=== PATIENT | male | born 1960 | race Caucasian/White ===

== ENCOUNTER 2020-06-07 13:05 | Outpatient (REF) | payer OTHER, SELFPAY | END 2020-06-07 13:06 | disposition home or self-care (01) | LOC: HO.LAB 13:05 | PROVIDERS: PCP Nurse Practitioner Family; Visit Provider Internal Medicine | DX: Z20.828 Contact with and (suspected) exposure to other viral communicable diseases (principal) | CPT/HCPCS: C9803; U0003 ==

== ENCOUNTER 2020-07-26 16:18 | Outpatient (REF) | payer OTHER, SELFPAY ==
--- NOTE | 2020-07-26 16:22 | XR_ITS ---
EXAMINATION: XR KNEE, LEFT CLINICAL INFORMATION: Pain COMPARISON: Previous x-ray August 2017 TECHNIQUE: Four views of the left knee. FINDINGS: Bone alignment is normal. No fracture or dislocation is seen. There are small osteophytes at the patellofemoral joint. Joint spaces are otherwise normal. There is no joint effusion. XR/XR knee LT 4V IMPRESSION: Mild degenerative changes at the patellofemoral joint.
== END 2020-07-26 16:19 | disposition home or self-care (01) ==
LOC: HO.HMGCX 16:18
PROVIDERS: Visit Provider Nurse Practitioner Family
DX: M25.562 Pain in left knee (principal)
CPT/HCPCS: 73564

== ENCOUNTER 2020-09-22 05:58 | Outpatient (REF) | payer OTHER, SELFPAY ==
[2020-09-22 08:17] LABS: Alanine Aminotransferase 18 U/L (0-40); Albumin Level 4.1 g/dL (3.5-5.0); Alkaline Phosphatase 61 U/L (39-117); Anion Gap 13 (12-20); Aspartate Amino Transferase 16 U/L (5-37); Bilirubin Total 1.1 mg/dL (0.0-1.0); Blood Urea Nitrogen 23 mg/dL (9-16); Calcium 8.9 mg/dL (8.4-10.2); Carbon Dioxide 26 mmol/L (22-29); Chloride 108 mmol/L (96-108); Estimated Glomerular Filt Rate > 60; Glucose Random 94 mg/dL (60-115); Potassium 4.6 mmol/L (3.3-5.1); Sodium 142 mmol/L (135-145); Total Protein 7.2 g/dL (6.5-8.0)
[2020-09-22 08:31] LABS: TSH reflex Free T4 2.49 uIU/mL (0.32-4.0)
== END 2020-09-22 05:59 | disposition home or self-care (01) ==
LOC: HO.LAB 05:58
PROVIDERS: PCP Nurse Practitioner Family; Visit Provider Nurse Practitioner Family
DX: R51.9 Headache, unspecified (principal); H57.10 Ocular pain, unspecified eye
CPT/HCPCS: 36415; 80053; 84443

== ENCOUNTER 2021-03-24 09:21 | Outpatient (REF) | payer OTHER, SELFPAY ==
--- NOTE | ~2021-03-24 | MR_ITS ---
EXAMINATION: MR KNEE WITHOUT CONTRAST, RIGHT CLINICAL INFORMATION: Knee pain. COMPARISON: None TECHNIQUE: MRI of the knee without contrast was performed using routine sequences on a high-field scanner. FINDINGS: MENISCI: Medial Meniscus: Tibial surface tearing in the posterior horn. In addition, there is free edge and superior surface fraying/tear in the lateral aspect of the posterior horn/posterior root. Tibial surface fraying/tear in the body, with meniscal tissue partially subluxed into the meniscotibial recess. Lateral Meniscus: Intact. LIGAMENTS: Cruciate: Intact. Collateral: Intact. EXTENSOR MECHANISM: Intact. ARTICULAR CARTILAGE/BONE: Patellofemoral Compartment: Area of cartilage heterogeneity and mild fissuring in the central trochlea. Medial Compartment: Cartilage thinning in the central and medial aspect of the compartment. Focal subchondral edema in the tibia. Lateral Compartment: Focal cartilage thinning in the posterior weightbearing femur. No fracture. JOINT FLUID AND BURSAE: No significant effusion. Suspected 4 mm loose body posteriorly. There is an area of heterogeneous T2 bright and low signal in the deep subcutaneous tissues along the posterior medial aspect of the knee, overlying the muscles and tendons in this region. This extends over a distance of approximately 4.2 x 0.9 x 4.9 cm (AP, transverse, craniocaudal). This is of uncertain etiology. Differential considerations include complex ganglion cyst, atypical bursitis, inflammatory process, less likely to be an infectious process. MR/MR knee RT wo con IMPRESSION: 1. Tibial surface tear in the posterior horn of the medial meniscus. Tibial surface fraying/tear in the body. 2. Mild tricompartment arthritis. 3. Suspected 4 mm loose body in the posterior joint space. 4. Heterogeneous T2 bright focus in the deep subcutaneous tissues along the posterior medial aspect of the knee, of indeterminate etiology, measuring approximately 4.2 x 0.9 x 4.9 cm. Differential considerations include complex tendons cyst, atypical bursitis, inflammatory process, less likely, infectious etiology. Please clinically correlate and manage. Followup MRI for reassessment as clinically warranted.
== END 2021-03-24 09:22 | disposition home or self-care (01) ==
LOC: HO.MRI 09:21
PROVIDERS: PCP Nurse Practitioner Family; Visit Provider Nurse Practitioner Family
DX: M25.561 Pain in right knee (principal)
CPT/HCPCS: 73721

== ENCOUNTER 2021-04-21 08:00 | Outpatient (REF) | payer OTHER, SELFPAY ==
--- NOTE | ~2021-04-21 | XR_ITS ---
EXAMINATION: X-RAY OF THE RIGHT KNEE CLINICAL INFORMATION: 60-year-old male patient with pain in the right knee. COMPARISON: MR of the right knee on 03/24/2021. (Mild tricompartmental arthritis, loose body, and medial meniscal tear). X-ray of the left knee on 07/26/2020. TECHNIQUE: AP standing views of both knees, lateral and sunrise views of the left knee. FINDINGS: Both knees show mild joint space narrowing of the medial compartments. The articular surfaces however are well-preserved. There is no joint effusion. A tiny patellar spur is present. A posterior loose body is present measuring 0.5 cm. What appears to be venous calcification is seen in the popliteal fossa. XR/XR knee standing BI IMPRESSION: Mild symmetric joint space narrowing of the medial compartments. Loose body right knee joint.
--- NOTE | ~2021-04-21 | XR_ITS ---
EXAMINATION: X-RAY OF THE RIGHT KNEE CLINICAL INFORMATION: 60-year-old male patient with pain in the right knee. COMPARISON: MR of the right knee on 03/24/2021. (Mild tricompartmental arthritis, loose body, and medial meniscal tear). X-ray of the left knee on 07/26/2020. TECHNIQUE: AP standing views of both knees, lateral and sunrise views of the left knee. FINDINGS: Both knees show mild joint space narrowing of the medial compartments. The articular surfaces however are well-preserved. There is no joint effusion. A tiny patellar spur is present. A posterior loose body is present measuring 0.5 cm. What appears to be venous calcification is seen in the popliteal fossa. XR/XR knee RT 2V IMPRESSION: Mild symmetric joint space narrowing of the medial compartments. Loose body right knee joint.
== END 2021-04-21 08:01 | disposition home or self-care (01) ==
LOC: HO.HOSX 08:00
PROVIDERS: Visit Provider Physician Assistant
DX: M17.11 Unilateral primary osteoarthritis, right knee (principal); M23.306 Other meniscus derangements, unspecified meniscus, right knee; M25.562 Pain in left knee
CPT/HCPCS: 73560; 73565

== ENCOUNTER 2021-05-11 06:03 | Outpatient (REF) | payer OTHER, SELFPAY ==
[2021-05-11 07:48] LABS: Alanine Aminotransferase 15 U/L (0-40); Alkaline Phosphatase 60 U/L (39-117); Anion Gap 12 (12-20); Aspartate Amino Transferase 16 U/L (5-37); Bilirubin Total 0.8 mg/dL (0.0-1.0); Blood Urea Nitrogen 16 mg/dL (9-16); Carbon Dioxide 28 mmol/L (22-29); Chloride 107 mmol/L (96-108); Cholesterol 169 mg/dL; Estimated Glomerular Filt Rate > 60; Glucose Fasting 103 mg/dL (60-99); HDL Cholesterol 41 mg/dL; LDL Cholesterol Calculated 115 mg/dl; Potassium 4.5 mmol/L (3.3-5.1); Sodium 142 mmol/L (135-145); Total Protein 6.9 g/dL (6.5-8.0); Triglycerides 67 mg/dL
[2021-05-11 08:43] LABS: Prostate Specific Antigen Scr 1.45 ng/mL (<0.05-4.0)
[2021-05-11 08:44] LABS: Appearance Urine CLEAR; Color Urine YELLOW; Glucose Urine UA NEG (NEG); Leukocyte Esterase Urine NEG (NEG); Nitrite Urine NEG (NEG); Urine Blood NEG (NEG); Urine Ketones NEG (NEG); Urine Protein NEG (NEG-TRACE)
== END 2021-05-11 06:04 | disposition home or self-care (01) ==
LOC: HO.LAB 06:03
PROVIDERS: PCP Nurse Practitioner Family; Visit Provider Nurse Practitioner Family
DX: Z00.00 Encounter for general adult medical examination without abnormal findings (principal); Z12.5 Encounter for screening for malignant neoplasm of prostate
CPT/HCPCS: 36415; 80053; 80061; 81003; 84153; 84443

== ENCOUNTER 2022-07-11 06:07 | Outpatient (REF) | payer OTHER, SELFPAY ==
[2022-07-11 06:17] LABS: MANUAL DIFF FLAG NO
[2022-07-11 07:42] LABS: Basophils Absolute Auto 0.1 X10*3/uL (0.0-0.2); Basophils Percent Auto 0.8 % (0-2); Eosinophils Absolute Auto 0.3 X10*3/uL (0.0-0.4); Eosinophils Percent Auto 3.6 % (0-4); Hematocrit 43.1 % (42.0-52.0); Hemoglobin 14.6 g/dl (14.0-18.0); Imm Gran Abs Auto 0.03 X10*3/uL (0.00-0.03); Imm Gran Pct Auto 0.4 % (0.0-0.4); Lymphocytes Absolute Auto 2.9 X10*3/uL (1.2-4.9); Lymphocytes Percent Auto 34.3 % (20-40); Mean Corpuscular HGB Conc 33.9 g/dl (31.0-36.0); Mean Corpuscular Hemoglobin 30.7 pg (27.0-33.0); Mean Corpuscular Volume 90.5 fL (80.0-98.0); Mean Platelet Volume 9.6 fL (9.4-12.4); Monocytes Absolute Auto 1.1 X10*3/uL (0.1-1.2); Monocytes Percent Auto 13.3 % (2-11); Neutrophils Percent Auto 47.6 % (45-73); Platelet Count 286 X10*3/uL (160-400); Red Blood Count 4.76 X10*6/uL (4.60-5.80); Red Cell Distribution Width 12.2 % (11.0-16.0); White Blood Count 8.4 X10*3/uL (4.8-10.8)
[2022-07-11 07:44] LABS: Appearance Urine Clear; Color Urine Yellow; Glucose Urine UA Negative (Negative); Leukocyte Esterase Urine Negative (Negative); Nitrite Urine Negative (Negative); PH 5.5 (5.0-9.0); Urine Blood Negative (Negative); Urine Ketones Negative (Negative); Urine Protein Negative (Neg-Trace)
[2022-07-11 08:36] LABS: Alanine Aminotransferase 23 U/L (0-40); Alkaline Phosphatase 64 U/L (39-117); Anion Gap 13 (12-20); Aspartate Amino Transferase 22 U/L (5-37); Bilirubin Total 0.9 mg/dL (0.0-1.0); Blood Urea Nitrogen 20 mg/dL (9-16); Calcium 9.2 mg/dL (8.4-10.2); Carbon Dioxide 27 mmol/L (22-29); Chloride 106 mmol/L (96-108); Cholesterol 188 mg/dL; Estimated Glomerular Filt Rate > 60; Glucose Fasting 103 mg/dL (60-99); HDL Cholesterol 44 mg/dL; LDL Cholesterol Calculated 127 mg/dl; Potassium 4.6 mmol/L (3.3-5.1); Prostate Specific Antigen Scr 1.29 ng/mL (<0.05-4.0); Sodium 141 mmol/L (135-145); TSH reflex Free T4 2.61 uIU/mL (0.32-4.0); Triglycerides 89 mg/dL
[2022-07-19 15:29] LABS: Testosterone, Free 60.8 pg/mL (35.0-155.0); Testosterone, Total 380 ng/dL (250-1100)
== END 2022-07-11 06:08 | disposition home or self-care (01) ==
LOC: HO.LAB 06:07
PROVIDERS: PCP Nurse Practitioner Family; Visit Provider Nurse Practitioner Family
DX: Z00.00 Encounter for general adult medical examination without abnormal findings (principal); Z12.5 Encounter for screening for malignant neoplasm of prostate; N52.9 Male erectile dysfunction, unspecified; R53.83 Other fatigue
CPT/HCPCS: 36415; 80053; 80061; 81003; 84153; 84402; 84403; 84443; 85025

== ENCOUNTER → 2022-08-13 15:13 | Outpatient (REF) | payer OTHER, SELFPAY | LOC: HO.SL 15:13 | PROVIDERS: Visit Provider Nurse Practitioner Family | DX: G47.30 Sleep apnea, unspecified (principal); R53.83 Other fatigue; R40.0 Somnolence; R06.83 Snoring | CPT/HCPCS: 95806 ==

== ENCOUNTER 2023-04-26 09:23 | Emergency (ER) | payer OTHER, SELFPAY ==
--- NOTE | 2023-04-26 09:25 | ECG_ITS ---
Test Reason : cp Blood Pressure : / mmHG Vent. Rate : 079 BPM Atrial Rate : 079 BPM P-R Int : 172 ms QRS Dur : 118 ms QT Int : 376 ms P-R-T Axes : 072 -49 055 degrees QTc Int : 431 ms Normal sinus rhythm Left axis deviation Incomplete right bundle branch block Abnormal ECG When compared with ECG of 20-MAY-2018 08:50, No significant change was found Referred By: Generic ED Physician Electronically Signed By:KALYAN SHARP
[2023-04-26 09:39] VITALS: BP 133/78; PULSE 83; RESP 16; TEMP 36.7; O2SAT 96; BMI 27.6
[2023-04-26 09:42] VITALS: PULSE 75; PULSE 78; RESP 16; O2SAT 95
--- NOTE | 2023-04-26 09:44 | PC.NURSE ---
Pt alert/oriented. Reports heart flutter sensation x 3 days with associated cough. Noted to have PVCs with episodes at bedside. Dr Escalona with this RN for evaluation. Denies pain, SOB or dizziness. Skin pwd. Speaking full sentences. Plan for labs
--- NOTE | 2023-04-26 09:47 | ED_ITS ---
HPI - Arrhythmia/Palpitations General Chief Complaint: Arrhythmia/Palpitations Stated Complaint: Chest Pain Time Seen by Provider: 04/26/23 09:33 History of Present Illness HPI narrative: Patient is a 62-year-old male then today was having palpitations. He denies any any energy drinks. No recreational drugs. The skip beats seems to be singular. It is not associated shortness of breath chest pain dizziness syncope or near syncopal episodes. It just feels odd. No history of the same. Patient is from home. No fever no chills. Patient works as a commercial painter. Related Data Previous Rx's Medication Instructions Recorded meclizine 25 mg tablet 25 mg PO DAILY PRN motion sickness 05/10/21 30 days #30 tabs sildenafil 50 mg tablet 50 mg PO DAILY PRN sexual activity 07/02/22 10 days #10 tabs omeprazole 40 mg capsule,delayed 40 mg PO DAILY 90 days #90 caps 02/06/23 release metoprolol tartrate 25 mg tablet 25 mg PO DAILY #14 tabs 04/26/23 Allergies Allergy/AdvReac Type Severity Reaction Status Date / Time No Known Allergies Allergy Verified 07/13/22 15:09 [No Known Allergies*] Review of Systems 2 Review of Systems: No fever no chills no chest pain or shortness of breath Yes all other systems are reviewed and are negative PMFSH Past Medical History Attestation statement: The following information was validated with the patient. 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 Oriented X3. No acute distress. Eyes: Pupils equal, round and reactive to light. ENT: Pharynx normal. Neck: Normal inspection. Neck supple. No lymph nodes noted. No crepitus CVS: Normal heart rate and rhythm. Pulses normal. Normal S1 and S2 Respiratory: No respiratory distress. Breath sounds normal. No Wheezing. No rales Abdomen: Soft and nontender. No rigidity. No distention. good BS x4 Skin: Skin warm and dry. Normal skin color. Normal skin turgor. Extremities: No lower extremity edema. Neurovascular intact to all extremities. No Lacerations. No Rash Neuro: Oriented X 3. No motor deficit. No sensory deficit. Moving all extermities. No slurred speech Medical Decision Making Medical Decision Making [facility] Narrative: Patient has unifocal PVCs noted on the monitor. These episodes occur when patient feels the odd be. My interpretation of his EKG showed a sinus rhythm heart rate is 80 AK QRS QTC within normal limits there is no acute ST segment elevation noted. Patient is in no acute distress. No chest pain no shortness of breath no diaphoresis no history of any G drink. Alcohol was negative. Denies any recreational drug use. Patient's case discussed with cardiology okay with starting patient on metoprolol 25 mg q.d.. Follow up with him on an outpatient basis. Patient is currently in stable Differential Diagnosis Differential Diagnoses: The differential diagnosis associated with the presentation includes Consult Healthcare Provider Management of the patient was discussed with: [facility] [employer] (Cardiology Dr. Wild) Lab Data [facility] Lab Attestation statement: I reviewed the patient's lab results. 04/26/23 10:07 04/26/23 10:07 Labs: Lab Results 04/26/23 Range/Units 10:07 WBC 6.9 (4.8-10.8) X10*3/uL RBC 4.33 L (4.60-5.80) X10*6/uL Hgb 13.5 L (14.0-18.0) g/dl Hct 39.5 L (42.0-52.0) % MCV 91.2 (80.0-98.0) fL MCH 31.2 (27.0-33.0) pg MCHC 34.2 (31.0-36.0) g/dl RDW 12.4 (11.0-16.0) % Plt Count 256 (160-400) X10*3/uL MPV 9.1 L (9.4-12.4) fL Immature Gran % (Auto) 0.3 (0.0-0.4) % Neut % (Auto) 52.4 (45-73) % Lymph % (Auto) 30.3 (20-40) % Bleckley % (Auto) 14.4 H (2-11) % Eos % (Auto) 2.2 (0-4) % Baso % (Auto) 0.4 (0-2) % Lymph # (Auto) 2.1 (1.2-4.9) X10*3/uL Bleckley # (Auto) 1.0 (0.1-1.2) X10*3/uL Eos # (Auto) 0.2 (0.0-0.4) X10*3/uL Baso # (Auto) 0.0 (0.0-0.2) X10*3/uL Abs Immat Gran (auto) 0.02 (0.00-0.03) X10*3/uL Absolute Neuts (auto) 3.6 (2.0-8.3) x10*3/uL Absolute Nucleated RBC 0.000 (0.0-0.012) X10*3/uL Nucleated RBC % (auto) 0.0 (0.0-0.2) /100WBC Sodium 140 (135-145) mmol/L Potassium 3.8 (3.3-5.1) mmol/L Chloride 108 (96-108) mmol/L Carbon Dioxide 23 (22-29) mmol/L Anion Gap 13 (12-20) BUN 17 H (9-16) mg/dL Creatinine 0.80 (0.5-1.4) mg/dL Estim Creat Clear Calc 104.5 Estimated GFR > 60 Random Glucose 106 (60-115) mg/dL Calcium 8.8 (8.4-10.2) mg/dL Total Bilirubin 0.9 (0.0-1.0) mg/dL Direct Bilirubin 0.3 (0.0-0.5) mg/dL AST 19 (5-37) U/L ALT 18 (0-40) U/L Alkaline Phosphatase 58 (39-117) U/L Troponin I High Sens < 2.7 (<3.5-35.0) ng/L Total Protein 7.1 (6.5-8.0) g/dL Albumin 3.9 (3.5-5.0) g/dL Urine Opiates Screen Not Detected (Not Detect) Urine Fentanyl Screen Not Detected (Not Detect) Ur Barbiturates Screen Not Detected (Not Detect) Ur Phencyclidine Scrn Not Detected (Not Detect) Ur Amphetamines Screen Not Detected (Not Detect) U Benzodiazepines Scrn Not Detected (Not Detect) Urine Cocaine Screen Not Detected (Not Detect) U Marijuana (THC) Screen Not Detected (Not Detect) Ethyl Alcohol < 10 mg/dL Independent Interpretation I performed an independent interpretation of an: EKG Interpretation: Sinus heart rate is 80 AK QRS QTC within normal limits is no acute ST segment elevation noted. External Record Review External record reviewed: Prior outpatient radiology Chronic Conditions Reflux Discharge Plan Discharge Clinical Impression: Frequent PVCs Patient Disposition: Home, Self-Care Instructions: Premature Ventricular Contractions (ED) Prescriptions: New metoprolol tartrate 25 mg tablet 25 mg PO DAILY Qty: 14 0RF No Action omeprazole 40 mg capsule,delayed release(DR/EC) 40 mg PO DAILY 90 Days Qty: 90 1RF meclizine 25 mg tablet 25 mg PO DAILY PRN (Reason: motion sickness) 30 Days Qty: 30 0RF sildenafil 50 mg tablet 50 mg PO DAILY PRN (Reason: sexual activity) 10 Days Qty: 10 0RF Rx Instructions: administer 30 minutes to 4 hours before activity Referrals: Israel Rogers MD [Physician] - Stand Alone Forms: Work/School Release
[2023-04-26 10:18] LABS: MANUAL DIFF FLAG NO
[2023-04-26 10:19] LABS: Basophils Percent Auto 0.4 % (0-2); Eosinophils Absolute Auto 0.2 X10*3/uL (0.0-0.4); Eosinophils Percent Auto 2.2 % (0-4); Hematocrit 39.5 % (42.0-52.0); Hemoglobin 13.5 g/dl (14.0-18.0); Imm Gran Abs Auto 0.02 X10*3/uL (0.00-0.03); Imm Gran Pct Auto 0.3 % (0.0-0.4); Lymphocytes Absolute Auto 2.1 X10*3/uL (1.2-4.9); Lymphocytes Percent Auto 30.3 % (20-40); Mean Corpuscular HGB Conc 34.2 g/dl (31.0-36.0); Mean Corpuscular Hemoglobin 31.2 pg (27.0-33.0); Mean Corpuscular Volume 91.2 fL (80.0-98.0); Mean Platelet Volume 9.1 fL (9.4-12.4); Monocytes Percent Auto 14.4 % (2-11); Neutrophils Absolute Auto 3.6 x10*3/uL (2.0-8.3); Neutrophils Percent Auto 52.4 % (45-73); Platelet Count 256 X10*3/uL (160-400); Red Blood Count 4.33 X10*6/uL (4.60-5.80); Red Cell Distribution Width 12.4 % (11.0-16.0); White Blood Count 6.9 X10*3/uL (4.8-10.8)
[2023-04-26 10:26] LABS: Amphetamine Screen Urine Not Detected (Not Detect); Barbiturates, Urine Not Detected (Not Detect); Benzodiazepines Screen Urine Not Detected (Not Detect); Cannabinoid Screen Urine Not Detected (Not Detect); Cocaine Screen Urine Not Detected (Not Detect); Fentanyl, urine Not Detected (Not Detect); Opiate Screen Urine Not Detected (Not Detect); Phencyclidine Screen Urine Not Detected (Not Detect)
[2023-04-26 10:36] LABS: Alanine Aminotransferase 18 U/L (0-40); Albumin Level 3.9 g/dL (3.5-5.0); Alkaline Phosphatase 58 U/L (39-117); Anion Gap 13 (12-20); Aspartate Amino Transferase 19 U/L (5-37); Bilirubin Direct 0.3 mg/dL (0.0-0.5); Bilirubin Total 0.9 mg/dL (0.0-1.0); Blood Urea Nitrogen 17 mg/dL (9-16); Calcium 8.8 mg/dL (8.4-10.2); Carbon Dioxide 23 mmol/L (22-29); Chloride 108 mmol/L (96-108); Creatinine Clr Calc Pharmacy 104.5; Estimated Glomerular Filt Rate > 60; Ethanol < 10 mg/dL; Glucose Random 106 mg/dL (60-115); Potassium 3.8 mmol/L (3.3-5.1); Sodium 140 mmol/L (135-145); Total Protein 7.1 g/dL (6.5-8.0)
[2023-04-26 10:49] LABS: Troponin-I High Sensitivity < 2.7 ng/L (<3.5-35.0)
[2023-04-26 12:38] VITALS: BP 124/88; PULSE 67; RESP 19; O2SAT 95
== END 2023-04-26 13:32 | disposition home or self-care (01) ==
PROVIDERS: Emergency Provider Emergency Medicine Emergency Medical Services; PCP Nurse Practitioner Family
DX: R07.89 Other chest pain (principal); R00.2 Palpitations; Z79.899 Other long term (current) drug therapy
CPT/HCPCS: 36415; 80048; 80076; 80307; 84484; 85025; 93005; 99284; 99285

== ENCOUNTER 2023-07-31 13:14 | Outpatient (AMB) | payer OTHER, SELFPAY ==
--- NOTE | 2023-07-31 13:17 | MHC.PC.OV ---
Vital Signs 07/31/23 13:20 Height 5 ft 11 in Weight 191 lb 2 oz BMI 26.7 BP 130/82 Blood Pressure Location Lt brachial Position Sitting Pulse 78 Pulse Source Pulse Oximeter Pulse Oximetry (%) 97 Oxygen Delivery Method Room Air Intake Visit Reasons: Physical exam Intake Note: Patient here for physical exam. no new issues or concerns. Missed last colonoscopy and will r/s Allergies No Known Allergies [No Known Allergies*] Allergy (Verified 07/31/23 13:21) Medication List - Last Reconciled 07/31/23 by ARASH Lira meclizine 25 mg PO DAILY PRN 30 days omeprazole 40 mg PO DAILY 90 days Tobacco use date assessed: 07/31/23 Dental Screening Dental Screen Date: 07/31/23 Did you have a dental visit in the last 12 months?: No Did you have a dental problem in the last 6 months where you did not have access to dental care?: No Was dental information given to patient?: Patient has dentist HPI Physical exam HPI Details pt is here for a PE. Reports his last colon screen he cancelled because he was out of town. He reports he will call to reschedule. 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 1. Little interest or pleasure in doing things: not at all 2. Feeling down, depressed, or hopeless: not at all 3. Trouble falling or staying asleep, or sleeping too much: not at all 4. Feeling tired or having little energy: not at all 5. Poor appetite or overeating: not at all 6. Feeling bad about yourself - or that you are a failure or have let yourself or your family down: not at all 7. Trouble concentrating on things, such as reading the newspaper or watching television: not at all 8. Moving or speaking so slowly that other people could have noticed. Or the opposite - being so fidgety or restless that you have been moving around a lot more than usual: not at all 9. Thoughts that you would be better off or of hurting yourself in some way: not at all Total score: 0 Depression Screening Interpretation: Negative Depression Screening Done: Yes Source: Developed by Drs. Macario Enciso, Carmen Vela, Arsh Tripp and colleagues, with an educational edy from [employer]. Thrive Questionnaire Date Thrive assessed: 07/31/23 I am a: Patient What is your living situation today?: I have a steady place to live Within the past 12 months, did the food you bought not last and you didn't have the money to get more?: Never true Within the past 12 months, did you worry whether your food would run out before you got money to buy more?: Never true Do you have trouble paying for medicines?: No Do you have trouble getting transportation to medical appointments?: No Do you have trouble paying your heating and electricity bill?: No Do you have trouble taking care of your child, family member or friend?: No Do you have trouble with day-to-day activities such as bathing, preparing meals, shopping, managing finances, etc.?: No Are you currently unemployed and looking for a job?: No Are you interested in more education?: No Currently or been in a relationship where the following occur: no concerns reported AUDIT C Alcohol Use Questionnaire (AUDIT-C) 1. How often do you have a drink containing alcohol?: Monthly or less 2. How many drinks containing alcohol do you have on a typical day when you are drinking?: 1 or 2 3. How often do you have six or more drinks on one occasion?: Never Total Score: 1 Score Reviewed/Action Taken: No NORI-7 AMB Questionnaire NORI-7 Date NORI - 7 assessed: 01/03/24 Source: Developed by Drs. Macario Enciso, Carmen Vela, Arsh Tripp and colleagues, with an educational edy from [employer]. NORI-7 Assessment Billing NORI-7 Assessment Tool: pt declined-do not bill Review of Systems Const Denies chills and Denies fever(s) Eyes Denies blurry vision ENT Denies vertigo, Denies dizziness and Denies sore throat Card Denies chest pain at rest, Denies chest pain with activity, Denies diaphoresis, Denies dyspnea and Denies dyspnea on exertion Resp Denies cough, Denies dyspnea, Denies dyspnea on exertion and Denies wheezing GI Denies abdominal pain, Denies melena, Denies hematochezia, Denies constipation, Denies diarrhea and Denies loose stools Denies hematuria Musc Denies numbness and Denies tingling Skin/Breast Denies lesions Neuro Denies vertigo, Denies dizziness, Denies numbness and Denies tingling Psych Denies anxiety, Denies depression, Denies homicidal ideation, Denies suicidal ideation and Denies other (substance abuse) Aller/Immun Denies wheezing Physical exam (Primary Care) Vital Signs: Last Vital Signs Pulse 78 07/31/23 13:20 BP 130/82 07/31/23 13:20 Pulse Ox 97 07/31/23 13:20 Oxygen Delivery Method Room Air 07/31/23 13:20 BMI result Body Mass Index 26.7 Tobacco/Smoking Status: Tobacco use Status Tobacco use date assessed 07/31/23 07/31/23 13:23 Patient Tobacco Use Status Never used Tobacco 07/31/23 13:18 e-Cigarette/Vaping Use Never Used 07/31/23 13:18 PHQ-9: PHQ-9 Score PHQ-9: Total score 0 07/31/23 14:43 Depression Screening Interpretation: Negative Thrive Assessment: Date of Thrive Assessment Date Thrive assessed 07/31/23 07/31/23 14:43 Currently or been in a relationship where the following occur: no concerns reported Const General: cooperative Nutritional Appearance: well nourished Orientation/consciousness: patient oriented x3 HENMT Head: Yes normal to inspection, Yes normocephalic and Yes atraumatic Ears: TM normal on the right and TM normal on the left Eyes General: appearance normal, both eyes and all related structures Alignment and Position: alignment normal and position normal Neck Neck: Yes normal visual inspection and Yes no lymphadenopathy Resp Effort & Inspection: normal respiratory effort Auscultation: clear to auscultation bilaterally Cardio Rate: regular rate Rhythm: regular rhythm Heart sounds: S1 normal heart sound present, S2 normal heart sound present and no murmurs GI Palpation (GI): Soft to palpation and nontender Auscultation: normal bowel sounds Other: prostate firm with nodularities noted Male General Exam: Yes normal external exam Penis: normal penis Scrotum: scrotum normal, testes descended bilaterally and no inguinal hernias Testes: no testicular mass Skin Rashes: no rashes Neuro General: patient oriented x3, moves all extremities, no focal motor deficits and deep tendon reflexes 2+ bilaterally Romberg Test: Negative Extrem Right lower extremity: no edema Left lower extremity: no edema Psych Affect: normal affect Attitude: cooperative Thought process: Normal thought process present Assessment and Plan Assessment & Plan (1) Physical exam: Code(s): Z00.00 - Encounter for general adult medical examination without abnormal findings (2) Nodular prostate: Code(s): N40.2 - Nodular prostate without lower urinary tract symptoms (3) Nocturia: Code(s): R35.1 - Nocturia Plan: referral to urology (4) Screening PSA (prostate specific antigen): Code(s): Z12.5 - Encounter for screening for malignant neoplasm of prostate Plan: referral placed to urology Orders: Orders Complete Blood Count Auto Diff Today Z00.00 - Encounter for general adult medical examination without abnormal findings Comprehensive Cherry Log. Panel Fast Today Z00.00 - Encounter for general adult medical examination without abnormal findings Lipid Panel Today Z00.00 - Encounter for general adult medical examination without abnormal findings Prostate Specific Antigen Scr Today Z12.5 - Encounter for screening for malignant neoplasm of prostate TSH reflex Free T4 Today Z00.00 - Encounter for general adult medical examination without abnormal findings UA CC w/rflx Micro + Cult Today Z00.00 - Encounter for general adult medical examination without abnormal findings Referrals Urology Referral N40.2 - Nodular prostate without lower urinary tract symptoms, R35.1 - Nocturia Coding Level of Care Code Est Pt Prev Care 40-64y([id number]) Diagnoses Physical exam Z00.00 Nodular prostate N40.2 Nocturia R35.1 Screening PSA (prostate specific antigen) Z12.5
[2023-07-31 13:20] VITALS: BP 130/82; PULSE 78; O2SAT 97; BMI 26.7
== END 2023-07-31 13:49 | disposition home or self-care (01) ==
PROVIDERS: PCP Nurse Practitioner Family; Visit Provider Nurse Practitioner Family
DX: Z00.00 Encounter for general adult medical examination without abnormal findings (principal); N40.2 Nodular prostate without lower urinary tract symptoms; R35.1 Nocturia; Z12.5 Encounter for screening for malignant neoplasm of prostate
CPT/HCPCS: 99396

== ENCOUNTER 2023-08-01 06:01 | Outpatient (REF) | payer OTHER, SELFPAY | END 2023-08-01 06:02 | disposition home or self-care (01) | LOC: HO.LAB 06:01 | PROVIDERS: PCP Nurse Practitioner Family; Visit Provider Nurse Practitioner Family | DX: Z00.00 Encounter for general adult medical examination without abnormal findings (principal); Z12.5 Encounter for screening for malignant neoplasm of prostate | CPT/HCPCS: 36415; 80053; 80061; 81003; 84153; 84443; 85025 ==

== ENCOUNTER 2023-08-26 15:19 | Outpatient (AMB) | payer OTHER, SELFPAY ==
--- NOTE | 2023-08-26 15:23 | MHC.OFFVIS ---
Intake Intake Visit Reasons: Nocturia Intake Note: New Patient presents for initial visit Nocturia Urology Medications: none Blood Thinner: none Data Processing Manager Required: No Accompanied by: Self / Same As Patient Allergies No Known Allergies [No Known Allergies*] Allergy (Verified 08/26/23 19:45) Medication List - Last Reconciled 08/26/23 by [facility] NavarreteP- meclizine 25 mg PO DAILY PRN 30 days omeprazole 40 mg PO DAILY 90 days HPI HPI Comments History of Present Illness Details Godfrey is a very pleasant 62-year-old male patient of Dr. Murphy. He presents to the office today as a new patient for nocturia and erectile dysfunction. In discussion with the patient today reports to be doing and feeling well. He reports noting longstanding nocturia however relates this to his increased consumption of fluids throughout the day as well as prior to bed. He does not find this bothersome. He denies any issues with his urination. He does however report experiencing erectile dysfunction. He reports he is able to obtain and maintain erections when watching pornography however finds it difficult to maintain erections with his significant other. He does report having sexual desire. Discussed at length pornography habits leading to erectile dysfunction. Discussed lifestyle modifications to assist with erectile dysfunction. He otherwise denies urinary urgency, urinary frequency, incontinence, hematuria, dysuria, foul smelling urine, changes to urinary stream, flank pain, fever, and or chills. He is happy with his current voiding parameters. When asked he does report having sleep apnea and being noncompliant. Discussed and stressed the importance of following up with sleep medicine for further assessment and evaluation. In review of patients chart appears PSAs are as follows: 05/18 1.5, 07/19 1.3, 08/21 1.5 Testosterone: 07/19-380 [facility] Surgical History History of cystoscopy Family History Father HTN (hypertension) Anxiety Mother Lung cancer Social History Housing: House Alcohol intake: current Alcohol intake frequency: holidays/special occasions only Patient Tobacco Use Status: Never used Tobacco e-Cigarette/Vaping Use: Never Used Second Hand Smoke Exposure: No service: No Current occupational status: employed Current occupation: [employer] and [employer] Current occupational exposures/hazards: No Cognitive needs: No Hearing needs: No Vision needs: No Review of Systems Const All systems reviewed & are unremarkable except as noted in HPI and below Physical Exam Const General: cooperative, healthy appearing, comfortable, no acute distress, well developed, alert and awake Nutritional Appearance: average body habitus Orientation/consciousness: patient oriented x3 Limitations: no limitations HEENT Head: Yes normal to inspection, Yes normocephalic and Yes atraumatic Ears: hearing grossly normal bilaterally Eyes General: appearance normal, both eyes and all related structures Neck Neck: Yes normal visual inspection and Yes trachea midline Chest Chest palpation & inspection: normal inspection of the chest Resp Effort & Inspection: normal respiratory effort and able to speak in complete sentences Cardio Rate: regular rate GI Inspection: Yes normal to inspection General: Yes no CVA tenderness Back/Spine/Pelvis Back: no CVA tenderness Skin General skin exam: no rashes or lesions noted Neuro General: patient oriented x3 Extrem General: Yes normal to inspection Psych Appearance: grossly normal and well kempt Mental Status: mental status grossly normal Speech and movement: Normal speech and movement present and Clear speech present Affect: normal affect Attitude: cooperative Thought process: Normal thought process present Thought content: Normal thought content present Insight: Fair insight present (Psych) Judgement: Fair judgement present (Psych) Results AMB Urinalysis, Automated UA Leukoctes 0 Ivet/uL Last Edit by [employer] on 08/26/23 15:49 UA Nitrite Negative Last Edit by [employer] on 08/26/23 15:49 UA Urobilinogen 0.2 mg/dL Last Edit by [employer] on 08/26/23 15:49 UA Protein 0 mg/dL Last Edit by [employer] on 08/26/23 15:49 UA pH 6.0 Last Edit by [employer] on 08/26/23 15:49 UA Blood 0 Julian/uL Last Edit by [employer] on 08/26/23 15:49 UA Specific [place] 1.020 Last Edit by [employer] on 08/26/23 15:49 UA Ketone Negative Last Edit by [employer] on 08/26/23 15:49 UA Bilirubin 0 mg/dL Last Edit by Latesha Sainz on 08/26/23 15:49 UA Glucose 0 mg/dL Last Edit by Latesha Sainz on 08/26/23 15:49 Results Reviewed Results Reviewed: Laboratory Last Values Urine pH (Auto) 6.0 08/26/23 15:48 Specific [place] (Auto) 1.020 08/26/23 15:48 Urine Protein (Auto) 0 mg/dL 08/26/23 15:48 Glucose (UA)(Auto) 0 mg/dL 08/26/23 15:48 Urine Ketones (Auto) Negative 08/26/23 15:48 Urine Blood (Auto) 0 Julian/uL 08/26/23 15:48 Urine Nitrite (Auto) Negative 08/26/23 15:48 Urine Bilirubin (Auto) 0 mg/dL 08/26/23 15:48 Urine Urobilinogen (Auto) 0.2 mg/dL 08/26/23 15:48 Leukocyte Esterase (Auto) 0 Ivet/uL 08/26/23 15:48 Assessment & Plan Assessment & Plan (1) Erectile dysfunction: Code(s): N52.9 - Male erectile dysfunction, unspecified (2) Sleep apnea: Code(s): G47.30 - Sleep apnea, unspecified (3) Nocturia: Code(s): R35.1 - Nocturia Plan In office urinalysis results reviewed with the patient today; as noted above. Discussed at length limiting pornography to assist with erectile dysfunction. Discussed at length lifestyle modifications to assist with ED as well as overall health and well-being. Patient does not find nocturia bothersome; discussed limiting fluids 3-4 hours prior to bed to decrease episodes of nocturia Discussed following up with sleep medicine for further assessment evaluation of sleep apnea Discussed at length importance of compliance with CPAP machine Start 5 mg of Cialis daily Prescription provided for p.r.n. dosing on demand Follow-up in 3 months; or sooner with any issues, concerns, and or questions. Orders: Orders AMB Urinalysis Automated Today Z13.9 - Encounter for screening, unspecified Medications: New tadalafil (Cialis) [id number] [facility] [place] [id number] Member [id number] 5 mg PO DAILY 90 tabs 0RF 90 days tadalafil (Cialis) administer approximately 30min before sexual activity; do not use more than 1 dose per 24hrs [id number] [facility] [place] [id number] Member [id number] 20 mg PO DAILY PRN 30 tabs 0RF sexual activity 90 days Patient Instructions: The patient had an opportunity to ask questions regarding the treatment plan. All questions were answered. Physical exam, labs, and imaging were discussed and reviewed in detail. As well as risks, benefits, and discussion of treatment choices. No major barriers to understanding were identified. The patient expressed understanding and agreement with the above treatment plan. The patient was made aware they should contact our office by phone for worsening of their current condition, the appearance of new symptoms, or with any questions or concerns. Compliance is encouraged with any medications and follow up testing that is ordered. It is a privilege to be allowed the opportunity to participate in? your urological care.? Again, if you have any questions or concerns If you have any questions or concerns please do not hesitate to contact me. The office is [phone]. This note is constructed using voice recognition software. While every effort has been made to ensure accuracy family support coordinator errors may have been included. Yours sincerely, ARASH Navarrete Coding Level of Care Code New Pt Level 4 (77819) Diagnoses Erectile dysfunction N52.9 Sleep apnea G47.30 Nocturia R35.1
== END 2023-08-26 16:06 | disposition home or self-care (01) ==
PROVIDERS: PCP Nurse Practitioner Family; Visit Provider Nurse Practitioner Family
DX: N52.9 Male erectile dysfunction, unspecified (principal); G47.30 Sleep apnea, unspecified; R35.1 Nocturia; Z13.9 Encounter for screening, unspecified
CPT/HCPCS: 99204

== ENCOUNTER → 2023-08-26 15:19 | Outpatient (BNVA) | payer OTHER, SELFPAY | PROVIDERS: PCP Nurse Practitioner Family; Visit Provider Nurse Practitioner Family | DX: R35.1 Nocturia (principal); N52.9 Male erectile dysfunction, unspecified; G47.30 Sleep apnea, unspecified | CPT/HCPCS: 81003 ==

== ENCOUNTER 2024-03-23 11:37 | Emergency (ER) | payer OTHER, SELFPAY ==
--- NOTE | ~2024-03-23 | CT_ITS ---
EXAMINATION: CT SOFT TISSUE NECK WITH CONTRAST CLINICAL INFORMATION: Right-sided of tongue pain. COMPARISON: None available. TECHNIQUE: Multidetector helical imaging was performed in the axial plane following the administration of 60 mL of Omnipaque 350 intravenous contrast. Multiple axial reformats and coronal/sagittal reconstructions were created the technologist workstation for review. This CT examination was performed using dose optimization techniques as appropriate, variously including the following: *Automated exposure control. *Adjustment of mA and/or kV according to patient size (this includes techniques or standardized protocols for targeted exams where dose is matched to indication/reason for exam; i.e. extremities or head). *Use of iterative reconstruction technique. DLP: 619 mGy-cm FINDINGS: No significant cutaneous thickening or subcutaneous inflammation. No discrete fluid collection within the deep tissues of the neck. The premaxillary, retromaxillary, pterygopalatine fossa, orbital apical, parapharyngeal, and prelaryngeal adipose tissue is maintained. Normal appearance of the parotid, submandibular, and thyroid glands. Scattered subcentimeter lymph nodes bilaterally, none of which are pathologically enlarged or abnormally enhancing. Evaluation of the oral cavity is partially limited by streak artifact from the patient's dental amalgam. Within this limitation, there is no demonstrated focal lesion or abnormal enhancement within the intrinsic tissues of the tongue or floor of mouth. Moderate prominence of the lingual tonsils. Otherwise normal normal mucosal contours of the pharynx and larynx without abnormal enhancement. Normal appearance of the hyoid bone, thyroid cartilage, or cartilaginous trachea. The airways remains widely patent. No radiopaque foreign bodies. The atlantooccipital and atlantoaxial articulations remain well aligned. There is anatomic alignment of the vertebral bodies and posterior elements. No evidence of acute fracture or subluxation of the cervical spine. The vertebral body heights are maintained. The intervertebral disc spaces are maintained. No evidence of epidural collection. There is no prevertebral soft tissue swelling. Normal opacification of the cervical arterial and venous structures. The visualized portion of the skull base is without significant abnormalities. The visualized paranasal sinuses are clear. The mastoid air cells and middle ear cavities are clear. Multifocal odontogenic enamel erosions. CT Upper Chest: The visualized lung apices and upper mediastinum are within normal limits. CT/CT soft tissue neck w IV con IMPRESSION: 1. Evaluation of the oral cavity is partially limited by streak artifact from the patient's dental amalgam. Within this limitation, there is no demonstrated focal lesion or abnormal enhancement within the intrinsic tissues of the tongue or floor of mouth. Recommend correlation with direct visualization. 2. Moderate prominence of the lingual tonsils. 3. Otherwise, no demonstrated focal lesion, collection, lymphadenopathy, or abnormal enhancement within the soft tissues of the neck. Electronically signed by: Will Hall DO 03/23/2024 09:31 PM EDT
--- NOTE | 2024-03-23 12:19 | ED_ITS ---
HPI - General Adult General Chief complaint: General Medical Stated complaint: tounge pain Time Seen by Provider: 03/23/24 17:33 Source: patient Mode of arrival: ambulatory Limitations: no limitations History of Present Illness ED Provider: Kelly SNYDER narrative: Patient is a 63-year-old male nonsmoker presenting to the emergency department with complaint of right-sided tongue pain for the past 2 weeks, worsening over the past 3 days. States that the pain increases at night and the throbbing is preventing him from sleeping. States he feels at times he has seen white spots to the affected area. Denies any discharge or drainage. Denies fevers. Denies any sore throat or difficulty swallowing. Reports similar symptoms intermittently over the past several years. States this recent episode has been the worst. He is unsure if symptoms were related to dental pain, visited his dentist to stated that the symptoms did not appear to be related to his teeth. MD complaint: Tongue pain Onset (ago): week(s) Location: mouth Severity: severe Quality: sharp Pain Consistency: colicky Exacerbating factors: eating Associated symptoms: denies other symptoms Treatments prior to arrival: none Related Data Previous Rx's ?Medication ?Instructions ?Recorded meclizine 25 mg tablet 25 mg PO DAILY PRN motion sickness 05/10/21 30 days #30 tabs tadalafil 5 mg tablet (Cialis) 5 mg PO DAILY 90 days #90 tabs 08/26/23 tadalafil 20 mg tablet (Cialis) 20 mg PO DAILY PRN sexual activity 10/28/23 90 days #30 tabs omeprazole 40 mg capsule,delayed 40 mg PO DAILY 90 days #90 caps 01/16/24 release Allergies Allergy/AdvReac Type Severity Reaction Status Date / Time No Known Allergies Allergy Verified 03/23/24 12:22 [No Known Allergies*] Review of Systems 2 Review of Systems: As per HPI Yes all other systems are reviewed and are negative Constitutional: Constitutional: Reports as per HPI PMFSH Past Medical History Surgical History History of cystoscopy Family History Family History Father HTN (hypertension) Anxiety Mother Lung cancer Social History Social History Housing: House Alcohol intake: current Alcohol intake frequency: holidays/special occasions only Patient Tobacco Use Status: Never used Tobacco e-Cigarette/Vaping Use: Never Used Second Hand Smoke Exposure: No Advance Directives: No Advance Directives Information Provided: No Do you have a plan to hurt others: No Plan service: No Current occupational status: employed Current occupation: [employer] Current occupational exposures/hazards: No Cognitive needs: No Hearing needs: No Vision needs: No Physical Exam ED Vital Signs: Vital Signs - 24 hr 03/23/24 12:20 03/23/24 17:39 Temperature 98.2 F 97.8 F Pulse Rate 91 71 Respiratory Rate 18 16 Blood Pressure 107/81 140/86 H Pulse Oximetry 96 95 Oxygen Delivery Method Room Air Room Air BMI result Body Mass Index 26.4 Vital signs have been reviewed and appear to be correct. Blood pressure normal. Heart rate normal. Respiratory rate normal. Temperature normal. Oxygen saturation normal. Const General: cooperative, healthy appearing and no acute distress Orientation/consciousness: oriented to person, oriented to place, oriented to time and patient oriented x3 Limitations: no limitations [facility] Head: Yes normocephalic and Yes atraumatic Ears: external ears normal General nose exam: Normal external nose present Face and sinus: Yes face symmetric Mouth: Normal oral and palatal mucosa present, lip normal, tongue normal, Normal salivary glands and ducts present, oropharynx normal, moist mucous membranes, no audible dysphonia, no drooling, no muffled voice, no trismus and No restricted motion Teeth and gingiva: dentition normal and gingiva normal Throat: Yes posterior oropharynx normal, Yes tonsils normal, Yes uvula midline, No peritonsillar mass and No uvular edema Eyes Pupils: Equal, round and reactive pupils present Neck Neck: Yes normal visual inspection, Yes full ROM, Yes no lymphadenopathy, Yes no meningeal signs, Yes trachea midline, Yes supple and No anterior neck swelling Carotids: no bruits Resp Effort & Inspection: normal respiratory effort and able to speak in complete sentences Auscultation: clear to auscultation bilaterally Cardio Rate: regular rate Rhythm: regular rhythm Heart sounds: S1 normal heart sound present and S2 normal heart sound present GI Palpation (GI): Soft to palpation and nontender Auscultation: normoactive bowel sounds General: Yes no CVA tenderness Back/Spine/Pelvis Back: no CVA tenderness Skin General skin exam: elasticity normal and turgor normal Neuro General: oriented to person, oriented to place, oriented to time, patient oriented x3, moves all extremities, no meningeal signs, no focal motor deficits and CN's II-XI intact bilaterally Cranial nerves: Yes Equal, round and reactive pupils present Cognition (Neuro): normal cognition Extrem General: Yes full ROM, Yes no pedal edema and Yes no calf tenderness Psych Mental Status: mental status grossly normal Affect: normal affect Thought process: Normal thought process present Course Course Course Narrative: RME performed by Cece Boston PA-C. Patient is a 63 year old assigned male at presenting to the emergency department with right sided tongue and cheek pain. Patient states over the last 2 weeks he has had a constant throbbing of his right cheek and tongue. Patient states that he thought it was dental so he went to his dentist and his dentist said everything was fine. Detailed physical exam and review of systems are deferred to the viscose cellar worker. Labs ordered. Patient placed back in the waiting room pending room availability and results. Medical Decision Making Medical Decision Making [facility] Narrative: Patient is a 63-year-old male nonsmoker presenting to the emergency department with complaint of right-sided tongue pain for the past 2 weeks, worsening over the past 3 days. On exam patient is awake, A+Ox3, VS WNL, afebrile, normal neurological exam without focal deficits, physical exam findings as above. Given reported symptoms and physical exam findings, initial differential includes aphtous ulcer, glossopharyngeal neuralgia, malignancy/mass. Labs grossly within normal limits. Case discussed with attending MD, Dr. Dougherty, who recommends CT head and neck. Patient signed out to RM Leal pending results of CTA head and neck. Differential Diagnosis Differential Diagnoses: The differential diagnosis associated with the presentation includes As per [facility] Lab Data [facility] Lab Attestation statement: I reviewed the patient's lab results. 03/23/24 12:49 03/23/24 12:49 Labs: Lab Results 03/23/24 Range/Units 12:49 WBC 9.9 (4.8-10.8) X10*3/uL RBC 4.80 (4.60-5.80) X10*6/uL Hgb 15.2 (14.0-18.0) g/dl Hct 43.4 (42.0-52.0) % MCV 90.4 (80.0-98.0) fL MCH 31.7 (27.0-33.0) pg MCHC 35.0 (31.0-36.0) g/dl RDW 12.3 (11.0-16.0) % Plt Count 277 (160-400) X10*3/uL MPV 9.2 L (9.4-12.4) fL Immature Gran % (Auto) 0.3 (0.0-0.4) % Neut % (Auto) 64.3 (45-73) % Lymph % (Auto) 23.5 (20-40) % [place] % (Auto) 9.9 (2-11) % Eos % (Auto) 1.4 (0-4) % Baso % (Auto) 0.6 (0-2) % Lymph # (Auto) 2.3 (1.2-4.9) X10*3/uL [place] # (Auto) 1.0 (0.1-1.2) X10*3/uL Eos # (Auto) 0.1 (0.0-0.4) X10*3/uL Baso # (Auto) 0.1 (0.0-0.2) X10*3/uL Abs Immat Gran (auto) 0.03 (0.00-0.03) X10*3/uL Absolute Neuts (auto) 6.3 (2.0-8.3) x10*3/uL Absolute Nucleated RBC 0.000 (0.0-0.012) X10*3/uL Nucleated RBC % (auto) 0.0 (0.0-0.2) /100WBC ESR 4 (0-15) MM/HR Sodium 138 (135-145) mmol/L Potassium 4.1 (3.3-5.1) mmol/L Chloride 109 H (96-108) mmol/L Carbon Dioxide 21 L (22-29) mmol/L Anion Gap 12 (12-20) BUN 19 H (9-16) mg/dL Creatinine 0.90 (0.5-1.4) mg/dL Estim Creat Clear Calc 91.8 Estimated GFR > 60 Random Glucose 94 (60-115) mg/dL Calcium 9.1 (8.4-10.2) mg/dL Magnesium 2.1 (1.6-2.6) mg/dL Total Bilirubin 1.1 H (0.0-1.0) mg/dL AST 19 (5-37) U/L ALT 18 (0-40) U/L Alkaline Phosphatase 66 (39-117) U/L C-Reactive Protein 0.14 (< or = 0.50) mg/dL Total Protein 7.7 (6.5-8.0) g/dL Albumin 4.2 (3.5-5.0) g/dL External Record Review External record reviewed: Inpatient record, Office record and Outpatient record Discharge Plan Discharge Clinical Impression: Tongue pain Patient Disposition: Still a Patient Prescriptions: No Action tadalafil [Cialis] 20 mg tablet 20 mg PO DAILY PRN (Reason: sexual activity) 90 Days Qty: 30 1RF Rx Instructions: administer approximately 30min before sexual activity; do not use more than 1 dose per 24hrs [id number] [facility]33 Member [id number] omeprazole 40 mg capsule,delayed release(DR/EC) 40 mg PO DAILY 90 Days Qty: 90 1RF meclizine 25 mg tablet 25 mg PO DAILY PRN (Reason: motion sickness) 30 Days Qty: 30 0RF tadalafil [Cialis] 5 mg tablet 5 mg PO DAILY 90 Days Qty: 90 0RF Rx Instructions: [id number] [facility] [id number] Member [id number] Print Language: Hungarian
[2024-03-23 12:20] VITALS: BP 107/81; PULSE 91; RESP 18; TEMP 36.8; O2SAT 96; BMI 26.4
[2024-03-23 12:54] LABS: MANUAL DIFF FLAG NO
[2024-03-23 12:58] LABS: Basophils Absolute Auto 0.1 X10*3/uL (0.0-0.2); Basophils Percent Auto 0.6 % (0-2); Eosinophils Absolute Auto 0.1 X10*3/uL (0.0-0.4); Eosinophils Percent Auto 1.4 % (0-4); Hematocrit 43.4 % (42.0-52.0); Hemoglobin 15.2 g/dl (14.0-18.0); Imm Gran Abs Auto 0.03 X10*3/uL (0.00-0.03); Imm Gran Pct Auto 0.3 % (0.0-0.4); Lymphocytes Absolute Auto 2.3 X10*3/uL (1.2-4.9); Lymphocytes Percent Auto 23.5 % (20-40); Mean Corpuscular Hemoglobin 31.7 pg (27.0-33.0); Mean Corpuscular Volume 90.4 fL (80.0-98.0); Mean Platelet Volume 9.2 fL (9.4-12.4); Monocytes Percent Auto 9.9 % (2-11); Neutrophils Absolute Auto 6.3 x10*3/uL (2.0-8.3); Neutrophils Percent Auto 64.3 % (45-73); Platelet Count 277 X10*3/uL (160-400); Red Cell Distribution Width 12.3 % (11.0-16.0); White Blood Count 9.9 X10*3/uL (4.8-10.8)
[2024-03-23 13:12] LABS: Alanine Aminotransferase 18 U/L (0-40); Albumin Level 4.2 g/dL (3.5-5.0); Alkaline Phosphatase 66 U/L (39-117); Anion Gap 12 (12-20); Aspartate Amino Transferase 19 U/L (5-37); Bilirubin Total 1.1 mg/dL (0.0-1.0); Blood Urea Nitrogen 19 mg/dL (9-16); C Reactive Protein 0.14 mg/dL (< or = 0.50); Calcium 9.1 mg/dL (8.4-10.2); Carbon Dioxide 21 mmol/L (22-29); Chloride 109 mmol/L (96-108); Creatinine Clr Calc Pharmacy 91.8; Estimated Glomerular Filt Rate > 60; Glucose Random 94 mg/dL (60-115); Magnesium 2.1 mg/dL (1.6-2.6); Potassium 4.1 mmol/L (3.3-5.1); Sodium 138 mmol/L (135-145); Total Protein 7.7 g/dL (6.5-8.0)
[2024-03-23 13:38] LABS: Erythrocyte Sedimentation Rate 4 MM/HR (0-15)
[2024-03-23 17:39] VITALS: BP 140/86; PULSE 71; RESP 16; TEMP 36.6; O2SAT 95
[2024-03-23] MEDS: iohexoL 350 MG/ML 100 ML INFUS..BTL IV (19:49)
[2024-03-23 20:25] VITALS: BP 124/76; PULSE 66; RESP 16; TEMP 36.6; O2SAT 99
[2024-03-23 22:27] VITALS: BP 124/76; PULSE 66; RESP 16; TEMP 36.6; O2SAT 99
== END 2024-03-23 22:27 | disposition home or self-care (01) ==
PROVIDERS: Physician Assistant Medical; Emergency Provider Internal Medicine; PCP Nurse Practitioner Family
DX: K14.6 Glossodynia (principal); R51.9 Headache, unspecified; Z79.899 Other long term (current) drug therapy
CPT/HCPCS: 36415; 70491; 80053; 83735; 85025; 85652; 86140; 99283; 99284; Q9967

== ENCOUNTER 2024-08-18 11:00 | Outpatient (AMB) | payer OTHER, SELFPAY ==
[2024-08-18 11:12] VITALS: BP 130/80; PULSE 85; O2SAT 96; BMI 26.5
--- NOTE | 2024-08-18 11:12 | MHC.PC.OV ---
Vital Signs 08/18/24 11:12 Height 5 ft 11 in Weight 190 lb BMI 26.5 BP 130/80 Blood Pressure Location Rt brachial Position Sitting Pulse 85 Pulse Source Pulse Oximeter Pulse Oximetry (%) 96 Intake Visit Reasons: Annual PE - see comments Intake Note: pt is here here for PE Class A Regional Drivers Required: No Accompanied by: Self / Same As Patient Allergies No Known Allergies [No Known Allergies*] Allergy (Verified 08/18/24 11:14) Tobacco use date assessed: 08/18/24 Dental Screening Dental Screen Date: 08/18/24 Did you have a dental visit in the last 12 months?: Yes Did you have a dental problem in the last 6 months where you did not have access to dental care?: No Was dental information given to patient?: Patient has dentist HPI Annual PE - see comments HPI Details History of Present Illness PE today. The patient is a 63-year-old male further presenting with left calf pain. The pain commenced approximately one and a half weeks ago. Initially, the patient observed some redness and slight swelling in the area. The pain is currently tender to touch, though there is no active swelling or erythema noted at this time. There has been no specific mention of precipitating factors, but progression involved increased tenderness. The patient denies any associated numbness, tingling, chest pain, or shortness of breath. He has not received any interventional treatment or specific management for the calf pain previously. The patient's colonoscopy is scheduled for the upcoming month. Refused ORESTES today Health Maintenance - Colonoscopy scheduled for next month Social History Review of Systems - Urinary: Denies urinary symptoms - Neurologic: Denies numbness or tingling - Cardiovascular: Denies chest pain - Respiratory: Denies shortness of breath - Psychiatric: Denies ongoing anxiety or depression - Gastrointestinal: Denies blood in stool Physical Exam General: Cooperative, healthy appearing, comfortable, no acute distress and well developed Orientation: Patient oriented x3 Limitations: No limitations Head: Normal to inspection Ears: Hearing grossly normal bilaterally Nose: Normal external nose present Face and sinus: Normal facial exam Eyes: Appearance normal, both eyes and all related structures Neck: Normal visual inspection and Yes full ROM Respiratory: Normal respiratory effort and able to speak in complete sentences. Clear to auscultation bilaterally Cardiovascular: Regular rate and rhythm. Normal S1 and S2 GI: Normal to inspection. Soft to palpation and nontender Skin: No rashes or lesions noted Neuro: Patient oriented x3 Extremities: tender to touch toda (left calf). No active swelling noted. No erythema. Results Plan - Venous Doppler scan to rule out Deep Vein Thrombosis DVT). - Encouraged patient to obtain laboratory tests in the near future. Patient was informed and verbally consented to the use of an ambient scribe for clinic note documentation during this visit. Discussion Notes I discussed with the patient the concern of potential deep vein thrombosis given the calf pain and history of swelling. I explained the Doppler ultrasound procedure to rule out DVT and stressed the importance of timely evaluation. The patient was encouraged to complete scheduled laboratory tests for comprehensive assessment, and I addressed his refusal of the digital rectal exam for the prostate check, emphasizing its importance for health maintenance. Patient Instructions - Proceed with the scheduled venous Doppler to rule out blood clots in the leg. - Schedule and complete recommended lab tests. - Monitor the left calf; if swelling, redness, or warmth occurs, follow up as needed. - Attend the upcoming colonoscopy appointment as scheduled. [facility] Medical History GERD (gastroesophageal reflux disease) Surgical History History of cystoscopy Family History Father HTN (hypertension) Anxiety Mother Lung cancer Social History Housing: House Alcohol intake: current Alcohol intake frequency: holidays/special occasions only Patient Tobacco Use Status: Never used Tobacco e-Cigarette/Vaping Use: Never Used Second Hand Smoke Exposure: No service: No Current occupational status: employed Current occupation: [employer] Current occupational exposures/hazards: No Cognitive needs: No Hearing needs: No Vision needs: No Questionnaire PHQ-9 Over the last 2 weeks, how often have you been bothered by any of the following problems? 1. Little interest or pleasure in doing things: not at all 2. Feeling down, depressed, or hopeless: not at all 3. Trouble falling or staying asleep, or sleeping too much: not at all 4. Feeling tired or having little energy: not at all 5. Poor appetite or overeating: not at all 6. Feeling bad about yourself - or that you are a failure or have let yourself or your family down: not at all 7. Trouble concentrating on things, such as reading the newspaper or watching television: not at all 8. Moving or speaking so slowly that other people could have noticed. Or the opposite - being so fidgety or restless that you have been moving around a lot more than usual: not at all 9. Thoughts that you would be better off or of hurting yourself in some way: not at all Total score: 0 Depression Screening Interpretation: Negative Depression Screening Done: Yes 92458 - PHQ-9 Billing: Yes Source: Developed by Drs. Macario Enciso, Carmen Vela, Arsh Tripp and colleagues, with an educational edy from [employer]. Thrive Questionnaire Date Thrive assessed: 08/18/24 I am a: Patient What is your living situation today?: I have a steady place to live Within the past 12 months, did the food you bought not last and you didn't have the money to get more?: Never true Within the past 12 months, did you worry whether your food would run out before you got money to buy more?: Never true Do you have trouble paying for medicines?: No Do you have trouble getting transportation to medical appointments?: No Do you have trouble paying your heating and electricity bill?: No Do you have trouble taking care of your child, family member or friend?: No Do you have trouble with day-to-day activities such as bathing, preparing meals, shopping, managing finances, etc.?: No Are you currently unemployed and looking for a job?: No Are you interested in more education?: No Please select the resources that you would like help with: None Currently or been in a relationship where the following occur: I choose not to answer THRIVE Score: 0 AUDIT C Alcohol Use Questionnaire (AUDIT-C) 1. How often do you have a drink containing alcohol?: 2-4 times a month 2. How many drinks containing alcohol do you have on a typical day when you are drinking?: 3 or 4 3. How often do you have six or more drinks on one occasion?: Less than monthly Total Score: 4 Score Reviewed/Action Taken: Yes NORI-7 AMB Questionnaire NORI-7 Date NORI - 7 assessed: 08/18/24 Feeling nervous, anxious, or on edge: 0 = Not at all Not being able to stop or control worryin = Not at all Worrying too much about different things: 0 = Not at all Trouble relaxin = Not at all Being so restless that it is hard to sit still: 0 = Not at all Becoming easily annoyed or irritable: 0 = Not at all Feeling afraid as if something awful might happen: 0 = Not at all Total NORI-7 score (0-4 normal; 5-9 mild; 10-14 moderate; 15-21 severe): 0 Source: Developed by Drs. Macario Enciso, Carmen Vela, Arsh Tripp and colleagues, with an educational edy from [employer]. NORI-7 Assessment Billing NORI-7 Assessment Tool: NORI-7 Assessment 61818 Physical exam (Primary Care) Vital Signs: Last Vital Signs Pulse 85 08/18/24 11:12 BP 130/80 08/18/24 11:12 Pulse Ox 96 08/18/24 11:12 BMI result Body Mass Index 26.5 Tobacco/Smoking Status: Tobacco use Status Tobacco use date assessed 08/18/24 08/18/24 11:15 Patient Tobacco Use Status Never used Tobacco 08/18/24 11:15 e-Cigarette/Vaping Use Never Used 08/18/24 11:15 PHQ-9: PHQ-9 Score PHQ-9: Total score 0 08/18/24 12:00 Depression Screening Interpretation: Negative Thrive Assessment: Date of Thrive Assessment Date Thrive assessed 08/18/24 08/18/24 11:15 Currently or been in a relationship where the following occur: I choose not to answer Coding Level of Care Code Est Pt Prev Care 40-64y(75272) Diagnoses Physical exam Z00.00 Screening PSA (prostate specific antigen) Z12.5 Pain of left calf M79.662 Additional Codes NORI-7 Assessment Billing - NORI-7 Assessment Tool: NORI-7 Assessment 82065 ([id number]) PHQ-9 - 86002 - PHQ-9 Billing: Yes ([id number]) Assessment & Plan Assessment & Plan (1) Physical exam: Code(s): Z00.00 - Encounter for general adult medical examination without abnormal findings Category: Medical (2) Screening PSA (prostate specific antigen): Code(s): Z12.5 - Encounter for screening for malignant neoplasm of prostate Category: Medical (3) Pain of left calf: Code(s): M79.662 - Pain in left lower leg Category: Medical Plan . Orders: Orders UA CC w/rflx Micro + Cult Today Z00.00 - Encounter for general adult medical examination without abnormal findings Prostate Specific Antigen Scr Today Z12.5 - Encounter for screening for malignant neoplasm of prostate US venous duplex LE LT Today M79.662 - Pain in left lower leg Complete Blood Count Auto Diff Today Z00.00 - Encounter for general adult medical examination without abnormal findings Comprehensive [place]. Panel Fast Today Z00.00 - Encounter for general adult medical examination without abnormal findings TSH reflex Free T4 Today Z00.00 - Encounter for general adult medical examination without abnormal findings Lipid Panel Today Z00.00 - Encounter for general adult medical examination without abnormal findings
== END 2024-08-18 12:26 | disposition home or self-care (01) ==
PROVIDERS: PCP Nurse Practitioner Family; Visit Provider Nurse Practitioner Family
DX: Z00.00 Encounter for general adult medical examination without abnormal findings (principal); Z12.5 Encounter for screening for malignant neoplasm of prostate; M79.662 Pain in left lower leg

== ENCOUNTER → 2024-08-18 11:00 | Outpatient (BNVA) | payer OTHER, SELFPAY | PROVIDERS: PCP Nurse Practitioner Family; Visit Provider Nurse Practitioner Family ==

== ENCOUNTER 2024-08-18 14:07 | Outpatient (REF) | payer OTHER, SELFPAY ==
--- NOTE | ~2024-08-18 | US_ITS ---
CLINICAL HISTORY: M79.662 - Pain in left lower leg r o dvt Venous duplex ultrasound left lower extremity Comparison: None Findings: There is thrombus within the popliteal vein. This is nonocclusive. There is also occlusive thrombus extending into the left gastrocnemius vein. Remaining visualized deep veins are fully compressible with normal Doppler color flow and spectral tracings. No popliteal cyst. IMPRESSION: Deep venous thrombosis of the left lower extremity with involvement of the popliteal and gastrocnemius veins. This document has been electronically signed by: Melita Walker MD on 08/18/2024 14:51:02
== END 2024-08-18 14:08 | disposition home or self-care (01) ==
LOC: HO.HMGCX 14:07
PROVIDERS: PCP Nurse Practitioner Family; Visit Provider Nurse Practitioner Family
DX: Z00.01 Encounter for general adult medical examination with abnormal findings (principal); M79.662 Pain in left lower leg
CPT/HCPCS: 93971; 96127

== ENCOUNTER → 2024-08-18 14:14 | Outpatient (BNV) | payer OTHER, SELFPAY | PROVIDERS: PCP Nurse Practitioner Family; Visit Provider Radiology Diagnostic Radiology | DX: M79.662 Pain in left lower leg (principal) | CPT/HCPCS: 93971 ==

== ENCOUNTER → 2024-09-18 14:16 | Outpatient (BNV) | payer OTHER, SELFPAY | PROVIDERS: PCP Nurse Practitioner Family; Referring Provider Nurse Practitioner Family; Visit Provider Internal Medicine | DX: I82.402 Acute embolism and thrombosis of unspecified deep veins of left lower extremity (principal) | CPT/HCPCS: 99204 ==

== ENCOUNTER 2025-02-26 06:20 | Day surgery (SDC) | payer OTHER, SELFPAY ==
[2024-09-09 13:34] VITALS: BMI 25.9
--- NOTE | 2025-02-25 09:01 | HO.ANESPROP2 ---
Documented by User: Dori Roberts NP 02/25/25 09:03 HPI - Anesthesia Eval Consult details Narrative: 64yo M for Upper Endoscopy and Colonoscopy Eliquis for hx unprovoked DVT - 07/2024 - following [facility] Heme and ok'd to hold preop PMFSH Active Problems Active Problems: All Active Problems DVT (deep venous thrombosis) (Acute) Pain of left calf (Acute) Nocturia (Acute) Nodular prostate (Acute) Snoring (Acute) Daytime sleepiness (Acute) Skin aging (Acute) Erectile dysfunction (Acute) Fatigue (Acute) Sleep apnea (Acute) Visual discomfort, left eye (Acute) Screening for colon cancer (Acute) Screening PSA (prostate specific antigen) (Acute) Physical exam (Acute) 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 (Acute) Patellofemoral arthritis of right knee (Acute) Right knee pain (Acute) Headache (Acute) Eye pain (Acute) Eye dryness (Acute) Knee pain (Acute) Past Medical History Medical History Basal cell carcinoma Hx of renal calculi DVT (deep venous thrombosis) (08/18/24) Aphthous ulcer GISELLA (obstructive sleep apnea) Depression GERD (gastroesophageal reflux disease) Family History Family History Father HTN (hypertension) Anxiety Mother Lung cancer Surgical History Surgical History Hx of colonoscopy History of cystoscopy Social History Social History Household Members: None Household Members Other:: lives alone Housing: House Are you a primary medication care manager to a significant other at home: No Do you presently have visiting nurse or other home services: No Alcohol intake: current Alcohol intake frequency: does not drink Patient Tobacco Use Status: Never used Tobacco e-Cigarette/Vaping Use: Never Used Second Hand Smoke Exposure: No Use of substances other than those prescribed or required for medical reasons: No Have you been hit, kicked, punched, or otherwise hurt by someone within the past year? 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 Current occupational exposures/hazards: No Gender identity: Male Cognitive needs: No Hearing needs: No Vision needs: No Meds Allergies Allergy/AdvReac Type Severity Reaction Status Date / Time No Known Allergies (No Known Allergy Verified 11/17/24 15:03 Allergies*) Exam Height,Weight and Vital Signs: Height 6 ft Weight 86.636 kg Assessment and Plan Assessment Anesthesia Assessment: Chart Reviewed Documented by User: Kathy Fleming MD 02/26/25 07:51 PMFSH Past Medical History Medical History Basal cell carcinoma Hx of renal calculi DVT (deep venous thrombosis) (08/18/24) Aphthous ulcer GISELLA (obstructive sleep apnea) Depression GERD (gastroesophageal reflux disease) Family History Family History Father HTN (hypertension) Anxiety Mother Lung cancer Family history of problems with anesthesia: No Surgical History Surgical History Hx of colonoscopy History of cystoscopy History of Problems with Anesthesia: No Social History Social History Household Members: None Household Members Other:: lives alone Housing: House Are you a primary medication care manager to a significant other at home: No Do you presently have visiting nurse or other home services: No Alcohol intake: current Alcohol intake frequency: does not drink Patient Tobacco Use Status: Never used Tobacco e-Cigarette/Vaping Use: Never Used Second Hand Smoke Exposure: No Use of substances other than those prescribed or required for medical reasons: No Have you been hit, kicked, punched, or otherwise hurt by someone within the past year? 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 Current occupational exposures/hazards: No Gender identity: Male Cognitive needs: No Hearing needs: No Vision needs: No Meds Allergies Allergy/AdvReac Type Severity Reaction Status Date / Time No Known Allergies (No Known Allergy Verified 11/17/24 15:03 Allergies*) Exam Airway Mallampati Class: II TM Dist: >3cm Neck ROM: Full Heart: rrr Lungs: cta Assessment and Plan Assessment Anesthesia Assessment: Anesthesia Plan Discussed Final Anesthetic Review Family History of Problems with Anesthesia: No History of Problems with Anesthesia: No NPO: Yes ASA Class: III Final Preanesthetic Review: No Changes in Pt Med Stat, Meds/Allgs Chart Reviewed, Consent Obtained/Reviewed and Anes Risks/Benef Reviewed Patient Risk: Intermediate Procedure Risk: Low Anesthetic Plan Anesthetic Plan: MAC: Disposition: Standard PACU
[2025-02-26 06:27] VITALS: BMI 25.2
[2025-02-26 06:40] VITALS: BP 114/74; PULSE 73; RESP 16; TEMP 36.4; O2SAT 97
[2025-02-26] MEDS: Lactated Ringers 1,000 ML 100 ML IVCONT (06:52)
--- NOTE | 2025-02-26 07:27 | MHC.SHP ---
Pre-Procedural Eval Section A - 24 Hr Update-Section A only Date of Service: 02/26/25 Section B - Complete if H&P > 30 days Chief Complaint: screening,gerd, Details of Present Illness: see H&P nochanges Relevant Family History (Specify if Yes): No Relevant Social History: None Present Medications: see Short Stay Collaborative assessment Medical History: No relevant PMH Allergies: Allergies Allergy/AdvReac Type Severity Reaction Status Date / Time No Known Allergies (No Known Allergy Verified 11/17/24 15:03 Allergies*) Review of Systems Sugical H&P ROS: Negative: Constitution, Cardiovascular, Respiratory, Neurological, Psychiatric, Hem-Onc, Allergic/Immunologic, Gastrointestinal, Genitourinary, Musculoskeletal, Integumentary, Endocrine and Eyes/Ears/Nose/Throat Exam Surgical H&P Exam: Normal: HEENT, Normal: Heart, Normal: Lungs, Normal: Extremities, Normal: Abdomen, Normal: Skin and Normal: Neurological Plan Diagnosis/Plan: Unchanged I have reviewed the history and physical and performed a pertinent physical examination on my patient. No changes have occurred unless specified. Time Spent With Patient Time: Total time managing care of this patient today ____ minutes.
[2025-02-26 08:14] VITALS: BP 115/70; PULSE 71; RESP 16; TEMP 36.3; O2SAT 95
[2025-02-26 08:29] VITALS: BP 125/82; PULSE 71; RESP 16; O2SAT 98
[2025-02-26 08:44] VITALS: BP 131/79; PULSE 75; RESP 16; TEMP 36.3; O2SAT 99
--- NOTE | 2025-02-26 09:31 | OP_ITS ---
DATE OF SERVICE: 02/26/2025 SURGEON: Casey Gao MD INDICATIONS: 1. Gastroesophageal reflux disease. 2. Colon cancer screening. PREOPERATIVE DIAGNOSIS: POSTOPERATIVE DIAGNOSIS: PROCEDURE PERFORMED: 1. Upper endoscopy with biopsy. 2. Colonoscopy to the terminal ileum. ESTIMATED BLOOD LOSS: COMPLICATIONS: ANESTHESIA: Monitored anesthesia care. ASSISTANTS: SPECIMENS: DESCRIPTION OF PROCEDURE: A history and physical was performed. The risks and benefits of the procedure were explained to the patient. Informed consent was obtained. The patient was placed in the left lateral decubitus position. The Olympus video gastroscope was introduced into the esophagus, stomach, and duodenum. Examination was performed, and the scope was removed. He was repositioned for colonoscopy. A digital rectal exam was performed and was found to be normal. The Olympus pediatric video colonoscope was introduced into the rectum and advanced to the cecum. The cecum was identified by transillumination, palpation, and identification of ileocecal valve. Examination was performed. The scope was removed. He tolerated both procedures well and was returned to the recovery area in stable condition. FINDINGS: Upper endoscopy: 1. Esophagus: The esophagus was normal. There was an irregular EG junction. This was biopsied. 2. Stomach: The stomach showed no evidence of masses, ulcers, or polyps. Antral biopsies were obtained. 3. Duodenum: The bulb and 2nd portion were normal. Colonoscopy: The terminal ileum was examined and appeared normal. The visualized colonic mucosa was within normal limits without evidence of masses or ulcers. No polyps were identified. Retroflexed examination was normal. There were small internal hemorrhoids noted. IMPRESSION: 1. Gastroesophageal reflux disease. 2. Normal colonoscopy. RECOMMENDATION: 1. Follow up the biopsy results on the endoscopy. 2. Colon cancer screening is recommended in 10 years for average-risk individuals. MD HALLE Colby/ALEJANDROL / [id number]
== END 2025-02-26 09:39 | disposition home or self-care (01) ==
PROVIDERS: PCP Nurse Practitioner Family; Visit Provider Internal Medicine Gastroenterology
PROC: (CPT 45378; principal; 2025-02-26 07:30)
DX: Z12.11 Encounter for screening for malignant neoplasm of colon (principal); K64.8 Other hemorrhoids; Z86.0102 Personal history of hyperplastic colon polyps; K31.9 Disease of stomach and duodenum, unspecified; K21.9 Gastro-esophageal reflux disease without esophagitis; G47.30 Sleep apnea, unspecified; Z86.718 Personal history of other venous thrombosis and embolism; Z79.01 Long term (current) use of anticoagulants; Z79.899 Other long term (current) drug therapy
CPT/HCPCS: 45378; 43239; 88305; 88313; 88342; J2704